=== PATIENT | female | born 1995 | race African-American/Black ===

== ENCOUNTER 2017-06-12 12:30 | Emergency (ER) | payer SELFPAY ==
[2017-06-12 13:09] LABS: Bilirubin Negative (Negative); Blood, Urine Negative (Negative); Glucose, Urine (Dipstick) Negative (Negative); Ketone, Urine Negative (Negative); Nitrite Negative (Negative); Protein, Urine (Dipstick) Negative (Neg-Trace); Urobilinogen 0.2 mg/dL (0.2-1.0)
[2017-06-14 07:30] LABS: GC - Neisseria gonorrhoeae NAA Negative (Negative)
== END 2017-06-12 14:08 | disposition home or self-care (01) ==
LOC: ERS 12:30
DX: B37.3 Candidiasis of vulva and vagina (principal)
CPT/HCPCS: 81003; 81025; 87480; 87491; 87510; 87591; 87660; 99283

== ENCOUNTER 2018-07-29 14:31 | Emergency (ER) | payer SELFPAY ==
[2018-07-29 15:14] LABS: #Eosinphils 0.1 thou/uL (0.0-0.7); #Lymphocytes 2.1 thou/uL (1.20-3.40); #Monocytes 0.4 thou/uL (0.11-0.59); #Neutrophils 3.4 thou/uL (1.40-6.50); %Basophils 0.6 % (0.0-1.0); %Lymphocytes 34.3 % (28.0-48.0); %Monocytes 6.5 % (0.0-4.0); %Neutrophils 56.6 % (31.0-61.0); Hemoglobin 14.1 g/dL (12.0-16.0); Mean Corpuscular HGB CONC 33.2 g/dL (32.0-36.0); Mean Corpuscular Hemoglobin 28.5 pg (25.0-35.0); Mean Corpuscular Volume 85.7 fL (78.0-98.0); Mean Platelet Volume 7.7 fL (7.4-10.4); Platelet Count 257 thou/uL (130-400); RBC Distribution Width 12.2 % (11.5-14.5); Red Blood Cell (RBC) Count 4.96 mill/uL (4.00-5.20)
[2018-07-29 15:25] LABS: Bilirubin Negative (Negative); Blood, Urine Negative (Negative); Clarity CLEAR (Clear); Glucose, Urine (Dipstick) Negative (Negative); Leukocyte Small (Negative); Nitrite Negative (Negative); Protein, Urine (Dipstick) Trace mg/dL (Neg-Trace); Specific Gravity, Urine 1.036 (1.002-1.036); Urobilinogen 0.2 mg/dL (0.2-1.0)
[2018-07-29 15:29] LABS: Bacteria/HPF None Seen HPF (None Seen); Hyaline Casts/LPF 7-10 HYALINE CAST LPF (0-3 Hyaline); Pathc Cast-AUWi Flag 1.01 (0-2.49)
[2018-07-29 15:30] LABS: BHCG - Serum POSITIVE (NEGATIVE); Pregs Control Background? CLEAR/WHITE (CLR/WHITE); Pregs Control Bar Appear? YES (CONTROL BAR)
[2018-07-29 15:32] LABS: RBC/HPF None Seen HPF (0-3)
--- NOTE | 2018-07-29 18:46 | ULT ---
PELVIC ULTRASOUND: Date: 07-29-18 Comparison: None. History: Abdominal pain, . Technique: Multiplanar grayscale sonographic imaging of the pelvis is obtained with transabdominal an d endovaginal imaging. The ovaries are assessed with color flow and spectral analysis. FINDINGS: The uterus measures 9.4 x 4.7 x 5.0 cm. Right ovary measures 1.6 x 3.1 x 1.8 cm and the left ovary me asures 1.9 x 3.7 x 2.4 cm. Ovaries demonstrate normal blood flow. 1 cm left ovarian follicle noted. N o ovarian or adnexal mass lesion noted on either side. Endometrial stripe measures 1.4 cm in thicknes s. Trace free fluid noted in the pelvic cul-de-sac. There is a vague hypoechoic area within the endometrial strip measuring only 3 mm. This could represe nt a very small gestational sac or could represent small volume fluid. No yolk sac or pole is s een. IMPRESSION: Vague 3 mm area of decreased echogencity within the endometrial stripe may represent a small gestatio nal sac or a pseudogestational sac/fluid. Assuming a positive test, these findings could re present an early normal , sonographically occult ectopic , or failed . Fabian ntitative Beta HCG evaluation at this time and in 48 hours is thus required. Code T POS: DAYA
== END 2018-07-29 18:36 | disposition home or self-care (01) ==
LOC: ERS 14:31
DX: O99.89 Other specified diseases and conditions complicating pregnancy, childbirth and the puerperium (principal); R10.9 Unspecified abdominal pain; Z3A.01 Less than 8 weeks gestation of pregnancy
CPT/HCPCS: 36415; 76856; 81003; 81015; 84702; 84703; 85025; 86900; 86901; 87086

== ENCOUNTER 2018-08-18 14:39 | Emergency (ER) | payer OTHER, SELFPAY | END 2018-08-18 16:06 | disposition home or self-care (01) | LOC: ERS 14:39 | DX: O99.511 Diseases of the respiratory system complicating pregnancy, first trimester (principal); J06.9 Acute upper respiratory infection, unspecified; Z3A.01 Less than 8 weeks gestation of pregnancy | CPT/HCPCS: 87804; 99283 ==

== ENCOUNTER 2018-12-15 14:39 | Day surgery (SDC) | payer OTHER ==
[2018-12-15 15:09] VITALS: BMI 32.8
--- NOTE | 2018-12-15 16:20 | PRG ---
DATE OF SERVICE: 12/15/2018 PRESENTING COMPLAINT: Twenty-four weeks' gestation, complaining of hotness, shortness of breath, and dizziness. HISTORY OF PRESENT ILLNESS: Ms. Vera is a 23-year-old primigravida with EDC of 03/31 placed under 24 weeks' gestation, who sees Dr. Titus Disa at [facility]. She reports that she has been feeling intermittently flush and has more difficulty taking a deep breath lately. She reports active fetus. She denies fever, chills, nausea, or vomiting. 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 Early enrollment in care. Antepartum record not available. PAST MEDICAL HISTORY: None. PAST SURGICAL HISTORY: None. ALLERGIES: COUGH SYRUP. MEDICATIONS: vitamins and Zofran. SOCIAL HISTORY: Denies tobacco, alcohol, or IV drug abuse. FAMILY HISTORY: Noncontributory. REVIEW OF SYSTEMS: Noncontributory. PHYSICAL EXAMINATION: GENERAL: White female, resting comfortably. VITAL SIGNS: Pulse 106, respirations 18, temperature 98.9, O2 sats 100% on room air, and blood pressure 120/63. HEENT: Within normal limits. LUNGS: Clear to auscultation bilaterally. HEART: Regular rhythm. ABDOMEN: Soft and nontender. No CVA tenderness noted. PELVIC: Deferred. EXTREMITIES: Without clubbing, cyanosis, or edema. heart rate monitoring is carried out for greater than 30 minutes, which revealed positive heart rate. Actual accelerations were noted. No contractions were noted. There was a reassuring heart rate for early second trimester. IMPRESSION: Discomforts of . No evidence of pathology including pulmonary embolus. PLAN: Reassurance. The patient is to keep scheduled followup with Dr. Dias. Job ID: [id number]
== END 2018-12-15 15:50 | disposition home or self-care (01) ==
LOC: L&D/OP 14:39
PROVIDERS: ATTEND Obstetrics & Gynecology
DX: O99.89 Other specified diseases and conditions complicating pregnancy, childbirth and the puerperium (principal); R06.02 Shortness of breath; R42 Dizziness and giddiness; Z3A.24 24 weeks gestation of pregnancy; Z79.899 Other long term (current) drug therapy

== ENCOUNTER 2019-02-11 18:22 | Day surgery (SDC) | payer OTHER ==
[2019-02-11 19:08] VITALS: BP 124/69; TEMP 98.5; BMI 32.8
[2019-02-11 20:26] LABS: Bilirubin Small (Negative); Blood, Urine Negative (Negative); Clarity TURBID (Clear); Glucose, Urine (Dipstick) 100 mg/dL (Negative); Leukocyte Trace (Negative); Nitrite Negative (Negative); Protein, Urine (Dipstick) 30 mg/dL (Neg-Trace); Specific Gravity, Urine 1.035 (1.002-1.036); pH, Urine 5.5 (5.0-9.0)
[2019-02-11 20:32] LABS: Bacteria/HPF None Seen HPF (None Seen); RBC/HPF 0-3 HPF (0-3)
[2019-02-11 20:34] LABS: Pathc Cast-AUWi Flag 2.99 (0-2.49)
[2019-02-11 20:44] LABS: Crystals/HPF 3+ AMORPH URATES HPF (Negative); Hyaline Casts/LPF 0-3 HYALINE CAST LPF (0-3 Hyaline)
--- NOTE | 2019-02-12 07:55 | HP ---
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 Titus Dias at [facility]. CHIEF COMPLAINT: Vaginal bleeding. HISTORY OF PRESENT ILLNESS: The patient is a 23-year-old primigravid female, who presented to Labor and Delivery with an intrauterine at 33 weeks and 2 days, who reports that she had a single episode of some blood on tissue paper when she wiped. The patient has not had any bleeding since and none prior. She denies intercourse. She denies any change in her discharge, leakage of fluid, urinary urgency. The patient denies any recent illness, fever, fall, headache, chest pain, shortness of breath. Nausea has been present, but not uncontrolled. Denies any vomiting, diarrhea, constipation, hip problem, knee problem, muscle weakness, urinary urgency. PAST MEDICAL HISTORY: Asthma. PAST SURGICAL HISTORY: None. ALLERGIES: COUGH SYRUP. MEDICATIONS: vitamins and Zofran. SOCIAL HISTORY: Denies drug, alcohol, or tobacco use. REVIEW OF SYSTEMS: Per HPI. PHYSICAL EXAMINATION: VITAL SIGNS: Blood pressure 124/69, heart rate of 108, saturating 96% to 98% on room air, respiratory rate 20, temperature 98.5. GENERAL: She appears to be in no acute distress. She is alert, oriented, cooperative, and pleasant to interact with. HEAD: Normocephalic and atraumatic. LUNGS: Clear to auscultation bilaterally. HEART: Has regular rate and rhythm. ABDOMEN: Soft, gravid, nontender. EXTREMITIES: Nontender, nonedematous. GENITOURINARY: Vulva is without masses, lesions, or erythema. Her vestibular area is without any masses, lesions, or erythema. No evidence of lacerations periurethrally or at the level of the introitus. No perianal bleeding visible. On speculum exam, the patient was noted to have minimal discharge. No evidence of bleeding. Cervix appears to be normal without any erythema or lesions. Cervical os is with clear mucus. No evidence of blood, old, or new. VPIII and GC chlamydia were collected at this time. heart tracing performed for vaginal bleeding shows baseline in the 140s with moderate long-term variability, positive 15 x 15 accelerations, no decelerations. She has a little bit irritability, but no real contractions visible. LABORATORY DATA: Urinalysis shows 1+ protein, trace ketones, small bilirubin, trace leukocyte esterase, 11 to 12 white blood cells, 4 to 6 squamous cells, 3 to 4 crystals, pH of 5.5, specific gravity of 1.035. VPIII positive for bacterial vaginosis, negative for Shauna or Trichomonas. ASSESSMENT AND PLAN: The patient is a 23-year-old primigravida female with an intrauterine at 33 weeks, presents for a single episode of blood on her tissue paper when she wiped. The patient does have evidence of bacterial vaginosis. Metronidazole 500 mg to be taken twice a day for 7 days has been forwarded to her pharmacy of choice. urinalysis is complicated by contamination from skin and likely skin rodriguez; however, no bacteria seen and negative for nitrites. The patient left before lab results were available and was asked to call back. I have attempted to call this morning and has not been able to speak to the patient, but did leave a message asking the patient to call the hospital for lab results. The patient has GC and chlamydia pending. The patient has been counseled to follow up with her primary OB as scheduled. Addendum 02/14/2019. PT contacted and Rx sent Job ID: [id number] MTDD
[2019-02-12 22:54] LABS: Chlamydia by PCR Not Detected (NotDetected); GC by PCR Not Detected (NotDetected)
== END 2019-02-11 20:20 | disposition home or self-care (01) ==
LOC: L&D/OP 18:22
PROVIDERS: ATTEND Obstetrics & Gynecology
DX: O99.89 Other specified diseases and conditions complicating pregnancy, childbirth and the puerperium (principal); N89.8 Other specified noninflammatory disorders of vagina; O99.513 Diseases of the respiratory system complicating pregnancy, third trimester; J45.909 Unspecified asthma, uncomplicated; Z3A.33 33 weeks gestation of pregnancy; Z79.899 Other long term (current) drug therapy
CPT/HCPCS: 81001; 87480; 87491; 87510; 87591; 87660; 99285

== ENCOUNTER 2019-03-21 11:50 | Day surgery (SDC) | payer OTHER ==
[2019-03-21 12:22] VITALS: BMI 32.8
[2019-03-21] MEDS ORDERED: hydrALAZINE 20 MG/ML VIAL SLOW IVP PRN (12:44)
--- NOTE | 2019-03-21 13:30 | PDOC.FPRHP ---
- History of Present Illness Chief Complaint: LOF, vaginal discharge History of Present Illness: 23 yo G1 @38.4wks with EDC: 03/31/19 presents with two episodes of LOF. The first episode was on Saturday and it was clear watery discharge. This happened again last night at 1230 while watching [employer]. She endorses vaginal pain and lower back pain that comes and goes. She isn't sure if this is a contraction. She denies vaginal discharge. She endorses movement. No vaginal bleeding. No new sexual partners. Feels pressure and pain with urination, but not necessarily burning. 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 no hx STDs BV, treated - Allergies/Adverse Reactions Allergies Allergy/AdvReac Type Severity Reaction Status Date / Time carbinoxamine [From [facility]] Allergy Intermediate Hives Verified 03/21/19 12:20 pseudoephedrine [From [facility]] Allergy Intermediate Hives Verified 03/21/19 12:20 - Home Medications Medication Instructions Recorded Confirmed Type Ondansetron [Ondansetron Odt] 1 tab PO PRN PRN 12/15/18 02/11/19 History Hza266/Iron Fum/Folic/Docusate 1 tablet PO DAILY 12/15/18 02/11/19 History [ 19] Acetaminophen [Tylenol] 325 mg PO PRN PRN 02/11/19 02/11/19 History Metronidazole [metroNIDAZOLE] 500 mg PO Q12HR #14 tab 02/12/19 Rx - History PMHx:none PSHx:none FHx:none Social:denies smoking, alcohol, drug use - Review of Systems General: denies: fever/chills, weight/appetite/sleep changes ENT: denies: nasal congestion, rhinorrhea Respiratory: denies: cough, congestion, shortness of breath Cardiovascular: denies: chest pain, palpitation, edema Gastrointestinal: denies: nausea, vomiting, diarrhea, constipation, abdominal pain, GI bleeding Genitourinary: reports: other (loss of fluid, vaginal pain/pressure, pain/ pressure with urination). denies: dysuria, discharge Skin: denies: rashes, lesions Musculoskeletal: denies: pain, tenderness Neurological: denies: numbness, syncope Psychological: denies: anxiety, depression - Vital signs BP: 121/65 HR: 99 FHT: 140s, moderate variability, no acels - Physical Exam Constitutional: NAD, awake, alert and oriented HEENT: normocephalic and atraumatic, PERRLA Neck: no LAD, no JVD Heart: RRR, normal S1/S2, no murmurs/rubs/gallops, no edema Lungs: CTAB, no respiratory distress, good air movement Abdomen: soft, other (gravid) Skin: no rash/lesions, good turgor, capillary refill <2 seconds Heme/Lymphatic: no unusual bruising or bleeding, no purpura Psychiatric: normal mood and affect, good judgment and insight Additional comment: CUTTER HELPER: no pooling on sterile speculum exam, normal vulva/vagina, evidence of white discharge, cervical os closed FMR H&P: A/P - Problem List (1) Fluid loss Current Visit: Yes Status: Acute Code(s): E86.9 - VOLUME DEPLETION, UNSPECIFIED (2) Third trimester Current Visit: Yes Status: Acute Code(s): Z34.93 - ENCNTR FOR SUPRVSN OF NORMAL PREG, UNSP, THIRD TRIMESTER - Plan 23 yo G1@38.4wks here for possible LOF. #possible LOF- -sterile speculum negative for pooling. Amnisure sent. Not contraction, and cervical os closed. #Pain with urination -UA and reflex culture #3T - -Sees Dr. Dias at [facility] dispo: will dc if not ruptured for follow-up with regular ob doctor. FMR H&P: Upper Level - Plan Date/Time: 03/21/19 [id number] I, [], have evaluated this patient and agree with findings/plan as outlined by mechanical intern resident. Pertinent changes/additions are listed here. Addendum - Attending - Attending Attestation Date/Time: 03/21/19 1330 I personally evaluated the patient and discussed the management with Dr. Baker I agree with the History, Examination, Assessment and Plan documented above.
[2019-03-21 13:47] LABS: Amnisure Test No Membranes Rupture (No Rupture); Bacteria/HPF None Seen HPF (None Seen); Bilirubin Negative (Negative); Blood, Urine Negative (Negative); Clarity Clear (Clear); Glucose, Urine (Dipstick) 100 mg/dL (Negative); Leukocyte 250 Leu/uL (Negative); Nitrite Negative (Negative); Protein, Urine (Dipstick) 30 mg/dL (Neg-Trace); Squamous Epithelial 0-3 HPF (0-3)
[2019-03-21 13:48] LABS: Amnisure Internal Control QC ACCEPTABLE (ACCEPTABLE)
[2019-03-21 13:54] LABS: Calcium Oxalate Crystals 2+ HPF (None Seen)
[2019-03-21 13:55] LABS: Urine Culture Reflex Yes Yes
[2019-03-21] MEDS ORDERED: metroNIDAZOLE 250 MG TAB PO SCH (21:00)
== END 2019-03-21 16:05 | disposition home or self-care (01) ==
LOC: L&D/OP 11:50
PROVIDERS: ATTEND Obstetrics & Gynecology
DX: O99.89 Other specified diseases and conditions complicating pregnancy, childbirth and the puerperium (principal); N89.8 Other specified noninflammatory disorders of vagina; R10.2 Pelvic and perineal pain; M54.5 Low back pain; R30.0 Dysuria; Z3A.38 38 weeks gestation of pregnancy; Z88.8 Allergy status to other drugs, medicaments and biological substances
CPT/HCPCS: 81001; 84112; 87086; 87480; 87510; 87660; 99285

== ENCOUNTER 2019-09-03 16:07 | Emergency (ER) | payer OTHER ==
[2019-09-03 16:42] LABS: #Eosinphils 0.1 thou/uL (0.0-0.7); #Lymphocytes 2.6 thou/uL (1.20-3.40); #Monocytes 0.5 thou/uL (0.11-0.59); #Neutrophils 3.5 thou/uL (1.40-6.50); %Basophils 0.7 % (0.0-1.0); %Lymphocytes 37.7 % (21.0-51.0); %Monocytes 7.7 % (0.0-10.0); %Neutrophils 51.9 % (42.0-75.0); Hemoglobin 13.8 g/dL (12.0-16.0); Mean Corpuscular HGB CONC 33.4 g/dL (32.0-36.0); Mean Corpuscular Hemoglobin 28.1 pg (27.0-31.0); Mean Corpuscular Volume 84.3 fL (78.0-98.0); Mean Platelet Volume 7.7 fL (7.4-10.4); Platelet Count 255 thou/uL (130-400); RBC Distribution Width 11.2 % (11.5-14.5); White Blood Cell (WBC) Count 6.8 thou/uL (4.8-10.8)
[2019-09-03 17:01] LABS: Pregnancy Test - Urine (BHCG) POSITIVE (Negative); Pregu Control Background? CLEAR/WHITE (CLR/WHITE); Pregu Control Bar Appear? YES (CONTROL BAR); Specific Gravity 1.035 (1.002-1.036)
[2019-09-03 17:02] LABS: Bacteria/HPF None Seen HPF (None Seen); Bilirubin Negative (Negative); Blood, Urine Negative (Negative); Clarity Clear (Clear); Glucose, Urine (Dipstick) Normal (Negative); Leukocyte Negative Leu/uL (Negative); Nitrite Negative (Negative); Protein, Urine (Dipstick) 30 mg/dL (Neg-Trace); Squamous Epithelial 0-3 HPF (0-3); Urobilinogen Normal mg/dL (Less than 2); WBC/HPF 0-3 HPF (0-3)
[2019-09-03 17:07] LABS: ALT (SGPT) 44 U/L (8-55); AST (SGOT) 19 U/L (5-34); Albumin 4.3 g/dL (3.5-5.0); Alkaline Phosphatase 103 U/L (40-110); Anion Gap 10 mmol/L (10-20); BUN (Urea Nitrogen) 7 mg/dL (7.0-18.7); Bilirubin, Total Less than 0.2 mg/dL (0.2-1.2); Calc. Creatinine Clearance 0 mL/min (70-130); Calcium 9.7 mg/dL (7.8-10.44); Carbon Dioxide 22 mmol/L (22-29); Chloride 109 mmol/L (98-107); Estimated GFR-MDRD Greater than 90; Globulin 2.9 g/dL (2.4-3.5); Glucose 107 mg/dL (70-105); Potassium 3.5 mmol/L (3.5-5.1); Protein, Total 7.2 g/dL (6.0-8.3); Sodium 137 mmol/L (136-145)
== END 2019-09-03 17:10 | disposition home or self-care (01) ==
LOC: ERS 16:07
DX: Z33.1 Pregnant state, incidental (principal)
CPT/HCPCS: 36415; 80053; 81003; 81015; 81025; 84702; 85025; 86900; 86901; 99284

== ENCOUNTER 2023-07-30 15:34 | Emergency (ER) | payer OTHER ==
[2023-07-30 19:11] LABS: Hematocrit 40.7 % (36.0-47.0); Hemoglobin 13.5 g/dL (12.0-16.0); Mean Corpuscular HGB CONC 33.2 g/dL (32.0-36.0); Mean Corpuscular Volume 87.5 fl (78.0-98.0); Mean Platelet Volume 8.9 fL (7.4-10.4); Platelet Count 283 10x3/uL (130-400); RBC Distribution Width 12.6 % (11.5-14.5); Red Blood Cell (RBC) Count 4.65 mill/uL (4.20-5.40); White Blood Cell (WBC) Count 7.3 10x3/uL (4.8-10.8)
[2023-07-30 19:13] LABS: Delete Auto Diff?? YES; Manual Diff?? YES
[2023-07-30 19:20] LABS: BHCG - Serum Negative (NEGATIVE); Pregs Control Background? CLEAR/WHITE (CLR/WHITE); Pregs Control Bar Appear? YES (CONTROL BAR)
[2023-07-30 19:24] LABS: PTT 25.2 sec (22.9-36.1); Prothrombin Time 13.2 sec (12.0-14.7)
[2023-07-30 19:28] LABS: Bacteria/HPF None Seen HPF (None Seen); Bilirubin Negative (Negative); Blood, Urine Negative (Negative); CAUTI Indications for Culture Pregnancy; Clarity Clear (Clear); Glucose, Urine (Dipstick) Normal (Negative); Ketone, Urine Negative (Negative); Leukocyte Negative Leu/uL (Negative); Nitrite Negative (Negative); Protein, Urine (Dipstick) Negative (Neg-Trace); RBC/HPF 0-3 HPF (0-3); Specific Gravity, Urine 1.027 (1.002-1.036); Squamous Epithelial None Seen HPF (0-3); Urobilinogen Normal mg/dL (Less than 2); WBC/HPF 0-3 HPF (0-3)
[2023-07-30] MEDS ORDERED: Magnesium Sulfate In Water 4 GM in Premix 1 BAG IVPB SCH (19:30)
[2023-07-30 19:31] LABS: Urine Culture Reflex Yes Yes
[2023-07-30 19:37] LABS: Band 3 % (5-11); CellaVision Operator ID LAB.MJL; Eosinophils 5 % (0-10); Lymphocytes 30 % (21-51); Monocytes 3 % (0-10); Neutrophil 45 % (42-75); Ovalocytes SLIGHT = 2-5 cells HPF (0-1); Platelet Adequacy Comment Platelets Normal; Polychromasia SLIGHT = 2-3 cells HPF (0-2); Reactive Lymphocytes 13 % (0-10); Total Cell Count 99; Vacuoles SLIGHT
[2023-07-30 19:40] LABS: ALT (SGPT) 45 U/L (8-55); AST (SGOT) 22 U/L (5-34); Albumin 3.8 g/dL (3.5-5.0); Alkaline Phosphatase 74 U/L (40-110); Anion Gap 13 mmol/L (10-20); BUN (Urea Nitrogen) 16 mg/dL (7.0-18.7); Bilirubin, Total 0.2 mg/dL (0.2-1.2); Calc. Creatinine Clearance 0 mL/min (70-130); Calcium 8.9 mg/dL (7.8-10.44); Carbon Dioxide 22 mmol/L (22-29); Chloride 107 mmol/L (98-107); Estimated GFR 124; Globulin 3.2 g/dL (2.4-3.5); Glucose 107 mg/dL (70-105); Potassium 4.1 mmol/L (3.5-5.1); Sodium 138 mmol/L (136-145)
[2023-07-30] MEDS ORDERED: Magnesium Sulfate 20 GM in Dextrose 5% in Water 460 ML IV SCH (19:45)
[2023-07-30] MEDS ORDERED: NIFEdipine 10 MG CAP PO SCH (19:45)
[2023-07-30] MEDS ORDERED: Prochlorperazine 10 MG/2 ML VIAL IVP SCH (20:30)
[2023-07-30] MEDS ORDERED: Ketorolac Tromethamine 30 MG/ML VIAL ONE (20:46)
== END 2023-07-30 22:07 | disposition short-term general hospital (02) ==
LOC: ERS 15:34
DX: O14.15 Severe pre-eclampsia, complicating the puerperium (principal)
CPT/HCPCS: 70470; 80053; 81001; 84703; 85025; 85610; 85730; 87086; J0780; J1885; J3475; J7070